=== PATIENT | female | born 1950 | race Caucasian/White ===

== ENCOUNTER 2016-07-09 13:37 | Emergency (ER) | payer MEDICARE ==
[2016-07-09 14:44] VITALS: TEMP 99.1; BMI 31.0
[2016-07-09 15:06] LABS: AUTOMATED LYMPH 18.3 % (17-44); AUTOMATED MONOCYTE 7.9 % (3-10); AUTOMATED NEUTROPHIL 68.8 % (45-76); MPV 8.2 fL (7.4-10.4)
[2016-07-09 15:14] LABS: BLOOD UREA NITROGEN 11 MG/DL (7-17); CALC CORRECTED 9.2 MG/DL (8.4-10.2); CALCIUM 8.8 MG/DL (8.4-10.2); CALCULATED OSMOLALITY 268 MOs/Kg (270-290); CHLORIDE 103 mEq/L (98-107); GLUCOSE 117 MG/DL (70-99); SODIUM LEVEL 139 mEq/L (137-146)
[2016-07-09 15:21] LABS: PARTIAL THROMB. TIME 22.9 SEC (22-35)
--- NOTE | 2016-07-09 16:13 | DIRPT ---
CLINICAL DATA: Cough, congestion, and shortness of breath 2 days. Current smoker. EXAM: CHEST 2 VIEW COMPARISON: None. FINDINGS: The heart size and mediastinal contours are within normal limits. Both lungs are clear. The visualized skeletal structures are unremarkable. Moderate hyperinflation. IMPRESSION: COPD. No active disease. Electronically Signed By: Bucky Mcdermott M.D. On: 07/09/2016 16:10
[2016-07-09] MEDS ORDERED: Albuterol/Ipratropium Neb 3 ML NEB NEB ONE ×2 (16:44→17:50)
[2016-07-09] MEDS ORDERED: METHYLPREDNISOLONE 125 MG/2 ML VIAL IV ONE (16:44)
[2016-07-09] MEDS ORDERED: NS 1,000 ML IV ONE (16:44)
--- NOTE | 2016-07-09 16:56 | EDPRACDOC ---
- General Information Chief Complaint: Dyspnea/Resp distress Stated Complaint: COUGH/MARY/SHOB Time Seen by Provider: 07/09/16 16:39 Information Source: Patient Mode Of Arrival: Car Home Medications: Home Medications Fluticasone Propionate [Flonase] 1 - 2 spray JOSSIE DAILY #1 each 07/23/14 Atorvastatin Calcium [Lipitor] 10 mg PO QHS 09/20/15 Furosemide 20 mg PO BID 09/20/15 Hydrocodone/Acetaminophen [Hydrocodon-Acetaminophn 10-325] 1 tab PO QID Losartan Potassium [Cozaar] 100 mg PO DAILY 09/20/15 Multivitamin [One Daily] 1 each PO DAILY 09/20/15 Pantoprazole Sodium [Protonix] 40 mg PO DAILY 09/20/15 Sertraline HCl [Zoloft] 200 mg PO DAILY 09/20/15 Tiotropium [place] [Spiriva] 18 mcg INH DAILY 09/20/15 Amlodipine [Norvasc] 7.5 mg PO DAILY 11/26/15 Metoprolol Succinate [Toprol Xl] 25 mg PO DAILY 11/26/15 Albuterol Sulfate Nebs [Proventil, Ventolin] 3 ml INH QID #1 nebu 07/09/16 Albuterol Sulfate [Proair Respiclick] 90 mcg IH DAILY #1 aer.pow.ba 07/09/16 Benzonatate [Tessalon] 200 mg PO TID #20 per 07/09/16 Dicyclomine HCl [Bentyl] 10 mg PO Q6H 07/09/16 Gabapentin 300 mg PO TID 07/09/16 Hyoscyamine [Levsin-Sl, Hyomax] 0.375 mg PO DAILY 07/09/16 Levofloxacin [Levaquin] 750 mg PO DAILY #7 tablet 07/09/16 Prednisone [Deltasone, Orasone] 20 mg PO BID #12 tab 07/09/16 Tizanidine HCl 4 mg PO TID 07/09/16 Allergies/Adverse Reactions: Allergies Allergy/AdvReac Type Severity Reaction Status Date / Time Iodinated Contrast Media - Allergy Hives* Verified 07/09/16 14:41 IV Dye morphine Allergy Itching Verified 07/09/16 14:41 - History of Present Illness Onset: SEVERAL DAYS HPI: PT PRESENTS STATING SHE IS HAVING INCREASED SHOB, COUGH, CONGESTION AND NASAL CONGESTION. PT STATES SHE HAS NOT BEEN FEELING WELL FOR THE PAST SEVERAL DAYS. STATES SHE HAS KNOWN COPD. Shortness of Breath: Mild Relevant History: Reports: COPD Cough: Reports: Productive, White Rhinorrhea: Reports: Clear Ear Symptoms: Reports: None SOB Worsens with: Reports: Exertion, Movement, Coughing, Lying Flat, Position SOB Improves with: Reports: Sitting up, Inhaler, Rest, Position Recently treated infections:: Denies: Otitis media, Pneumonia, URI - Treatment Prior to ED Arrival Reported Medications/Treatment PATCHER BOWLING BALL Treated With Medication PATCHER BOWLING BALL YES Medications PATCHER BOWLING BALL (Medication/ ALBUTEROL, SPIRIVA Dose/Time) ED Past Medical History - History Reviewed Yes Nurses notes reviewed and agree except as marked - Patient Medical History Neurological History: Reports: Seizures (late ) Cardiac History: Reports: Hypertension, Cardiac Catheterization, Hypercholesterolemia Respiratory History: Reports: Asthma, COPD GI/ History: Reports: Ulcer, Diverticulosis Musculoskeletal History: Reports: Arthritis Psychological History: Reports: Depression Systemic History: Reports: Anemia Surgical History: Reports: Cardiac Catheterization - Family Medical History Reports: Hypertension, Diabetes, Cancer, Stroke (maternal grandmother). Denies : Cardiac Disorders - Social Medical History Smoking Status: Heavy tobacco smoker (5 or more cigarettes/day or daily pipe/ cigar) EDM Review of Systems - Review of Systems ROS Negative Except as Marked: Yes All systems reviewed and were negative except as marked - Physical Exam Constitutional: Alert Oriented to: Time, Person, Place Last recorded Vital Signs: Last Vital Signs Temp 99.1 F 07/09/16 14:42 Pulse 113 07/09/16 14:42 Resp 22 07/09/16 14:42 BP 145/81 07/09/16 14:42 Pulse Ox 92 07/09/16 14:42 Oxygen Pulse Oxygen Saturation 92 O2 Device Room Air Oxygen Flow Rate Fraction of Inspired Oxygen ( FIO2) - HEENT Head: Normal ( normocephalic) Eye Exam: Normal (PERRL, EOMI, Sclera white) Oropharynx: Normal (Pharynx:Moist without exudate,Gums-no swelling) Tympanic Membrane: Normal Nose: No Symptoms Reported (septum midline) Neck: Normal (FROM, trachea at midline) - Respiratory/Cardiovascular Respiratory: Rhonchi, Tachypnea, Wheezes Cardiovascular: Tachycardia - GI Auscultation: Normal (NABS) Palpation: Normal (Soft,No rebound or guarding, non distended) Tenderness: Non tender Read's Sign: Negative Rectal Exam: Deferred - Musculoskeletal Back: Normal (Non-Tender) Extremities: Normal (Normal tone, Pulses 2+ No cyanosis or edema, FROM) - Integumentary Skin: Normal, Warm, Dry Lymphatics: Normal (no adenopathy) - Neurologic Memory Impaired: Normal Motor Function: Normal (Normal tone, Pulses 2+ No cyanosis or edema, FROM) Cranial Nerve: Normal (CN II-X11 intact sensation, strength 5/5) Cerebellar: Normal Mood Description: Normal Perception: Normal ED SOB MDM - Differential Diagnosis Differential Diagnosis: Other - Re-evaluation Re-evaluation 1 Re-evaluation Time: 18:00 (WHEEZING SOMEWHAT BETTER. WILL GIVE ANOTHER DUONEB) - Results Result Diagrams: 07/09/16 14:50 07/09/16 14:50 Results: WBC 7.7 xk/uL (3.8-10.8) 07/09/16 14:50 RBC 4.71 xM/uL (4.20-5.40) 07/09/16 14:50 Hgb 15.4 g/dL (12.0-16.0) 07/09/16 14:50 Hct 45.8 % (36-47) 07/09/16 14:50 MCV 97 fL (81-99) 07/09/16 14:50 MCH 32.7 pg (27-32) H 07/09/16 14:50 MCHC 33.6 g/dl (33-36) 07/09/16 14:50 RDW 13.7 % (11.5-14.5) 07/09/16 14:50 Plt Count 203 xk/uL (130-400) 07/09/16 14:50 MPV 8.2 fL (7.4-10.4) 07/09/16 14:50 Neut % (Auto) 68.8 % (45-76) 07/09/16 14:50 Lymph % (Auto) 18.3 % (17-44) 07/09/16 14:50 [place] % (Auto) 7.9 % (3-10) 07/09/16 14:50 Eos % (Auto) 4.0 % (0-5) 07/09/16 14:50 Baso % (Auto) 1.0 % (0-2) 07/09/16 14:50 Absolute Neuts (auto) 5.24 xk/uL (1.7-8.2) 07/09/16 14:50 Absolute Lymphs (auto) 1.39 xk/uL (0.65-4.75) 07/09/16 14:50 PT 10.0 SEC (9.2-11.2) 07/09/16 14:50 INR 1.0 07/09/16 14:50 APTT 22.9 SEC (22-35) 07/09/16 14:50 Sodium 139 mEq/L (137-146) 07/09/16 14:50 Potassium 4.1 mEq/L (3.5-5.1) 07/09/16 14:50 Chloride 103 mEq/L (98-107) 07/09/16 14:50 Carbon Dioxide 25 mMOL/L (22-33) 07/09/16 14:50 Anion Gap 15 mEq/L (8-16) 07/09/16 14:50 BUN 11 MG/DL (7-17) 07/09/16 14:50 Creatinine 0.70 MG/DL (0.52-1.04) 07/09/16 14:50 Estimated GFR (MDRD) > 60 mL/min (>=60) 07/09/16 14:50 Glucose 117 MG/DL (70-99) H 07/09/16 14:50 Calculated Osmolality 268 MOs/Kg (270-290) L 07/09/16 14:50 Calcium 8.8 MG/DL (8.4-10.2) 07/09/16 14:50 Corrected Calcium 9.2 MG/DL (8.4-10.2) 07/09/16 14:50 Total Bilirubin 0.7 MG/DL (0.2-1.3) 07/09/16 14:50 AST 25 IU/L (14-36) 07/09/16 14:50 ALT 28 IU/L (9-52) 07/09/16 14:50 Alkaline Phosphatase 79 IU/L (55-165) 07/09/16 14:50 Troponin I < 0.01 ng/mL (<.04) 07/09/16 14:50 [id number] Pept 61 pg/mL (0-900) 07/09/16 14:50 Total Protein 7.0 G/DL (6.3-8.2) 07/09/16 14:50 Albumin 3.6 G/DL (3.5-5.0) 07/09/16 14:50 Lab Results 07/09/16 07/09/16 07/09/16 14:50 14:50 14:50 WBC 7.7 RBC 4.71 Hgb 15.4 Hct 45.8 MCV 97 MCH 32.7 H MCHC 33.6 RDW 13.7 Plt Count 203 MPV 8.2 Neut % (Auto) 68.8 Lymph % (Auto) 18.3 [place] % (Auto) 7.9 Eos % (Auto) 4.0 Baso % (Auto) 1.0 Absolute Neuts (auto) 5.24 Absolute Lymphs (auto) 1.39 PT 10.0 INR 1.0 APTT 22.9 Sodium 139 Potassium 4.1 Chloride 103 Carbon Dioxide 25 Anion Gap 15 BUN 11 Creatinine 0.70 Estimated GFR (MDRD) > 60 Glucose 117 H Calculated Osmolality 268 L Calcium 8.8 Corrected Calcium 9.2 Total Bilirubin 0.7 AST 25 ALT 28 Alkaline Phosphatase 79 Troponin I < 0.01 Pix-T-Pnuutnyzmhd Pept 61 Total Protein 7.0 Albumin 3.6 - Departure Disposition: Home Condition: Stable Final Diagnosis: Acute exacerbation of chronic obstructive airways disease Instructions: COPD (Chronic Obstructive Pulmonary Disease) (ED) Education/Counseling Given To: Patient Education/Counseling Given Regarding: Diagnosis, Treatment, Prognosis, Follow Up Referrals: Sourav Ernst MD [Primary Care Provider] - One Week Prescriptions: Albuterol Sulfate [Proair Respiclick] 90 mcg IH DAILY #1 aer.pow.ba Albuterol Sulfate Nebs [Proventil, Ventolin] 3 ml INH QID #1 nebu Benzonatate [Tessalon] 200 mg PO TID #20 per Levofloxacin [Levaquin] 750 mg PO DAILY #7 tablet Prednisone [Deltasone, Orasone] 20 mg PO BID #12 tab Additional Instructions: INCREASE FLUID INTAKE. FOLLOW UP WITH PRIMARY CARE PROVIDER NEXT WEEK. TAKE ALL ANTIBIOTICS PRESCRIBED. RETURN TO THE ED FOR WORSENING SYMPTOMS OR CONCERNS.
[2016-07-09 17:03] LABS: BEb 1.7 (+/- 2); TCO2 27.9 MMOL/L (23-27)
[2016-07-09 17:04] LABS: ABG Draw Site Right Radial
[2016-07-09 17:12] LABS: ALLEN'S TEST PASS
[2016-07-09 17:29] VITALS: BP 109/60
[2016-07-09] MEDS ORDERED: HYDROmorphone 1 MG INJECTION IV ONE (17:50)
[2016-07-09 18:29] VITALS: PULSE 112
== END 2016-07-09 18:35 | disposition home or self-care (01) ==
LOC: ED 13:37
DX: J44.1 Chronic obstructive pulmonary disease with (acute) exacerbation (principal)
CPT/HCPCS: 36415; 36600; 71020; 80053; 82803; 83880; 84484; 85025; 85610; 85730; 87804; 93005; 94640; 96361; 96374; 96375; 99283; J1170; J2930; J7620